=== PATIENT | male | born 1960 | race Caucasian/White ===

== ENCOUNTER 2019-07-30 21:20 | Emergency (ER) | payer OTHER ==
[~2019-07-30] VITALS: Ht 188 cm; Wt 90.7 kg
[2019-07-30 21:40] VITALS: BP 152/96
--- NOTE | 2019-07-30 21:43 | NUR ---
TO LOBBY VIA WHEELCHAIR A/W BED
--- NOTE | 2019-07-30 22:23 | NUR ---
PT TAKEN TO BED 09 VIA WHEELCHAIR.
--- NOTE | 2019-07-30 22:40 | NUR ---
PT C/O RIGHT ANKLE PAIN AFTER FALLING IN HOLE. PT APPEARS TO BE IN MILD DISTRESS. PT GIVEN COLD PACK. PT PMSC INTACT. PULSE +2. PT DENIES NUMBNESS OR TINGLING. WAITING ON X-RAY RESULTS. WILL CONTINUE TO [place]. DENIES N/V/D; SKIN IS PINK/WARM/DRY; AAOX4; LUNGS CLEAR BL; HR EVEN AND REGULAR; PT DENIES ANY FEVER, CP, SOB, OR COUGH AT THIS TIME; PATIENT STATES PAIN OF 6/10 AT THIS TIME; VSS; PATIENT POSITIONED FOR COMFORT; HOB ELEVATED; BEDRAILS UP X1; BED DOWN. ER MD MADE AWARE OF PT STATUS.
[2019-07-30] MEDS ORDERED: MORPHINE SULFATE 4 MG/ML SYR IM ONE (23:40)
--- NOTE | 2019-07-31 00:40 | NUR ---
PT RESTING COMFORTABLY IN BED. PT APPEARS TO BE IN NO DISTRESS. WAITING FOR CALL BACK FROM [facility] FOR HIGHER LEVEL OF CARE TRANSFER.
--- NOTE | 2019-07-31 02:40 | NUR ---
PT STATES PAIN IS INCREASING TO 7/10. DR. FABIO STARKEY.
[2019-07-31] MEDS ORDERED: MORPHINE SULFATE 4 MG/ML SYR IVP ONE (03:00)
--- NOTE | 2019-07-31 03:14 | NUR ---
[id number] TRANSFERING PT TO [facility] FOR HIGHER LEVEL OF CARE. PT LEG BEING SPLINTED BY FERMÍN RAMIREZ. PT APPEARS TO BE IN NO DISTRESS. NO CHANGES FROM PREVIOUS ASSESSMENT
--- NOTE | 2019-07-31 03:15 | NUR ---
POSTERIOR SHORT LEG SPLINT PLACED ON PT R ANKLE. +CSM
[2019-07-31 03:27] VITALS: BP 122/80
--- NOTE | 2019-07-31 03:28 | NUR ---
Patient to be transferred to [facility]. Is being transferred due to HIGHER LEVEL OF CARE. Receiving facility has accepting physician and available space. ER physician has signed transfer form. Patient or responsible republican has agreed to transfer and signed form. Patient belongings inventoried and will be sent with patient. Copy of nursing notes, lab reports, EKG, Physicians Orders and X-rays to be sent with patient. Report called to ALAN BRADFORD at receiving facility. [facility] ambulance service has been called for transfer.
== END 2019-07-31 03:28 | disposition short-term general hospital (02) ==
LOC: MED 21:20
DX: S82.851A Displaced trimalleolar fracture of right lower leg, initial encounter for closed fracture (principal); W22.8XXA Striking against or struck by other objects, initial encounter; Y93.89 Activity, other specified; Y92.89 Other specified places as the place of occurrence of the external cause; Y99.8 Other external cause status
CPT/HCPCS: 29515; 73610; 96372; 96374; 99285; J2270